=== PATIENT | female | born 1985 | race Caucasian/White ===

== ENCOUNTER 2016-11-17 22:11 | Inpatient (IN) | payer MEDICAID ==
[~2016-11-17] VITALS: Ht 162.6 cm; Wt 42.4 kg
[~2016-11-17 22:11] MED LIST: CHLO25CA9 PO; FAMO40TA4 PO; LORA-445 PO; MULT-484 PO; OXYC10TA32 PO; OXYC5CAP4 PO; PRED-402 PO; PRED20TA PO
[2016-11-17] MEDS ORDERED: ONDANSETRON 2MG/ML, 2ML IVPush ONE (22:30)
[2016-11-17] MEDS ORDERED: KETOROLAC 30 MG/1 ML IVPush ONE (22:30)
[2016-11-17] MEDS ORDERED: PLEASE ENTER HEIGHT AND WEIGHT MC SCH (22:30)
[2016-11-17] MEDS ORDERED: SODIUM CHLORIDE 0.9% 1,000ML IVBOLUS ONE (22:30)
[2016-11-17] MEDS ORDERED: MORPHINE SULFATE 4 MG/ML, 1ML IVPush PRN (22:30)
[2016-11-17] MEDS ORDERED: SODIUM CHLORIDE FLUSH 10ML SYR IVF ONE (22:30)
[2016-11-17] MEDS ORDERED: METOCLOPRAMIDE 5 MG/ML, 2ML IVPush ONE (22:30)
[2016-11-17] MEDS ORDERED: KETOROLAC 30 MG/1 ML ONE (22:32)
[2016-11-17] MEDS ORDERED: METOCLOPRAMIDE 5 MG/ML, 2ML ONE (22:32)
[2016-11-17] MEDS ORDERED: MORPHINE SULFATE 4 MG/ML, 1ML ONE (22:32)
[2016-11-17] MEDS ORDERED: ONDANSETRON 2MG/ML, 2ML ONE ×2 (22:32→23:35)
[2016-11-17 22:40] LABS: ASPARTATE AMINO TRANSFERASE 608 U/L (15-37); BLOOD UREA NITROGEN 3 mg/dL (7-18)
[2016-11-17] MEDS ORDERED: ONDA8TAB12 PO (22:46)
[2016-11-18] MEDS ORDERED: PROMETHAZINE 25 MG/ML, 1ML IM PRN (00:30)
[2016-11-18] MEDS ORDERED: LORazepam 2 MG/ML, 1ML IV PRN ×4 (00:30)
[2016-11-18] MEDS: HEPARIN 5,000 UNITS/ML, 1ML SQ SCH ×3 (00:30→16:10)
[2016-11-18 01:06] VITALS: BP 118/82
[2016-11-18] MEDS ORDERED: HYDROmorphone 1 MG/ML, 1ML ONE ×5 (01:11→20:38)
[2016-11-18] MEDS: NS + 20MEQ KCL 1,000 ML IV SCH ×3 (01:16→16:37)
[2016-11-18] MEDS: NICOTINE 7 MG/24 HR PATCH.TD24 TD SCH (01:17)
[2016-11-18] MEDS: HYDROmorphone 2 MG/ML, 1ML IVPush PRN ×7 (01:18→20:42)
[2016-11-18] MEDS: ONDANSETRON 2MG/ML, 2ML IVPush PRN (03:17)
[2016-11-18] MEDS: LORazepam 2 MG/ML, 1ML IV PRN (03:24)
[2016-11-18 06:05] LABS: ASPARTATE AMINO TRANSFERASE 481 U/L (15-37); BLOOD UREA NITROGEN 3 mg/dL (7-18)
[2016-11-18 07:11] VITALS: BP 116/80
[2016-11-18] MEDS: NYSTATIN 500,000 UNITS/5 ML UDC PO SCH ×4 (08:54→20:42)
[2016-11-18] MEDS: FAMOTIDINE 20 MG TABLET PO SCH ×2 (08:54→20:42)
[2016-11-18] MEDS ORDERED: MAALOX/HYOSCYAMINE/LIDOCAINE 45 ML BOTTLE PO ONE (12:00)
[2016-11-18] MEDS: FOLIC ACID 1 MG TABLET PO SCH (12:04)
[2016-11-18] MEDS: THIAMINE 100MG TABLET PO SCH (12:04)
[2016-11-18] MEDS: MULTIVITAMIN 1 TABLET PO SCH (12:04)
[2016-11-18 14:55] VITALS: BP 121/82
[2016-11-18 16:02] LABS: DAU SCREEN DISCLAIMER
[2016-11-18 18:49] VITALS: BP 103/71
[2016-11-18] MEDS ORDERED: HYDROmorphone 2 MG/ML, 1ML IVPush PRN (22:30)
[2016-11-18] MEDS: OXYcodone IR 5MG TABLET PO PRN (23:43)
[2016-11-19] MEDS ORDERED: HYDROmorphone 1 MG/ML, 1ML ONE (01:31)
[2016-11-19] MEDS: NICOTINE 7 MG/24 HR PATCH.TD24 TD SCH (01:37)
[2016-11-19] MEDS: HEPARIN 5,000 UNITS/ML, 1ML SQ SCH ×2 (01:37→07:42)
[2016-11-19] MEDS: NS + 20MEQ KCL 1,000 ML IV SCH ×2 (01:44→10:01)
[2016-11-19 01:58] VITALS: BP 123/92
[2016-11-19] MEDS: OXYcodone IR 5MG TABLET PO PRN ×3 (03:44→11:54)
[2016-11-19 06:50] LABS: ASPARTATE AMINO TRANSFERASE 311 U/L (15-37); BLOOD UREA NITROGEN 1 mg/dL (7-18)
[2016-11-19 07:34] VITALS: BP 120/80
[2016-11-19] MEDS: NYSTATIN 500,000 UNITS/5 ML UDC PO SCH ×2 (07:41→11:54)
[2016-11-19] MEDS: FAMOTIDINE 20 MG TABLET PO SCH (07:42)
[2016-11-19] MEDS: MULTIVITAMIN 1 TABLET PO SCH (07:42)
[2016-11-19] MEDS: FOLIC ACID 1 MG TABLET PO SCH (07:42)
[2016-11-19] MEDS: THIAMINE 100MG TABLET PO SCH (07:42)
[2016-11-19] MEDS: ONDANSETRON 2MG/ML, 2ML IVPush PRN (09:16)
[2016-11-19] MEDS: LORazepam 2 MG/ML, 1ML IV PRN (09:25)
[2016-11-19] MEDS ORDERED: PRED-402 PO (12:00)
[2016-11-19] MEDS ORDERED: NYST1000 PO (12:00)
[2016-11-19] MEDS ORDERED: ONDA8TAB12 PO (12:01)
[2016-11-19 12:39] VITALS: BP 115/83
[2016-11-19] MEDS ORDERED: OXYC5CAP4 PO (13:12)
== END 2016-11-19 13:40 | disposition home or self-care (01) | DRG 433 ==
LOC: ED 23:01 → EDIP 23:10 → 4NOR 23:49 → DCLOUNGE 11-19 13:07
PROVIDERS: ADMIT Family Medicine; ATTEND Family Medicine
DX: K70.10 Alcoholic hepatitis without ascites (principal); K86.1 Other chronic pancreatitis; B37.0 Candidal stomatitis; R11.2 Nausea with vomiting, unspecified; M32.9 Systemic lupus erythematosus, unspecified; K75.4 Autoimmune hepatitis; K21.9 Gastro-esophageal reflux disease without esophagitis; F17.210 Nicotine dependence, cigarettes, uncomplicated; L40.9 Psoriasis, unspecified; K76.0 Fatty (change of) liver, not elsewhere classified; F10.20 Alcohol dependence, uncomplicated; L40.50 Arthropathic psoriasis, unspecified; Y90.6 Blood alcohol level of 120-199 mg/100 ml; Z80.1 Family history of malignant neoplasm of trachea, bronchus and lung; Z83.3 Family history of diabetes mellitus; Z79.899 Other long term (current) drug therapy; Z79.52 Long term (current) use of systemic steroids
CPT/HCPCS: 36415; 76700; 80053; 80307; 81003; 83690; 84443; 84703; 85025; 96361; 96374; 96375; J1170; J1644; J1885; J2405; J3480; J2060; J2765; J7030; J7512